=== PATIENT | female | born 1985 | race Asian ===

== ENCOUNTER 2016-12-24 09:01 | Outpatient (CLI) | payer BC ==
[~2016-12-24] VITALS: Ht 154.9 cm; Wt 78.2 kg
[2016-12-24 09:13] VITALS: BP 114/64; PULSE 83; TEMP 98.2
[2016-12-24] MEDS ORDERED: VTAMINC250TA ×2 (09:24)
[2016-12-24] MEDS ORDERED: PRENATAL1 TA7 PO (09:25)
[2016-12-24] MEDS ORDERED: IRON325 MG PO (09:25)
[2016-12-24] MEDS ORDERED: GLUCOPHAGE500 MG/TAB PO (09:26)
[2016-12-24 09:32] VITALS: BP 114/64; PULSE 83; TEMP 98.2
[2016-12-24 10:18] VITALS: BP 108/69; PULSE 76
== END 2016-12-24 10:37 | disposition home or self-care (01) ==
LOC: LDRO 09:01
DX: O47.1 False labor at or after 37 completed weeks of gestation (principal); Z3A.39 39 weeks gestation of pregnancy

== ENCOUNTER 2016-12-26 01:44 | Inpatient (IN) | payer BC ==
[~2016-12-26] VITALS: Ht 154.9 cm; Wt 78.2 kg
[2016-12-26] VITALS (17 sets, daily range): BP systolic 108–149; BP diastolic 60–85; PULSE 71–122; TEMP 97.9–99
[~2016-12-26 01:44] MED LIST: GLUCOPHAGE500 MG/TAB PO; IRON325 MG PO; PRENATAL1 TA7 PO; VTAMINC250TA
[2016-12-26 05:10] LABS: BASO % 0.2 % (0.0-2.0); EOS % 0.2 % (0-4.0); GRAN # 14.4 (1.4-6.5); GRAN % 84.9 % (42.2-75.2); HEMOGLOBIN 12.5 g/dl (12.5-16.0); LYMPH # 1.7 (1.2-3.4); LYMPH % 10.3 % (20.0-51.0); MEAN CELL VOLUME 81 fl (80.0-100.0); MEAN CORPUSCULAR HEMOGLOBIN 27 pg (27.0-31.0); MEAN CORPUSCULAR HGB CONC 33 g/dl (33.0-37.0); MEAN PLATELET VOLUME 13.4 fl (7.4-10.4); MONO # 0.7 (0.1-0.6); MONO % 3.8 % (1.7-9.3); PLATELET COUNT 263 K/mm3 (130-400); RED BLOOD COUNT 4.67 M/mm3 (4.10-5.30); REDCELL DISTRIBUTION WIDTH-CV 18.1 % (11.5-14.5)
[2016-12-27 03:45] VITALS: BP 103/70; PULSE 72; TEMP 97.5
[2016-12-27 07:36] LABS: BASO % 0.3 % (0.0-2.0); EOS # 0.3 (0.0-0.7); EOS % 2.5 % (0-4.0); GRAN # 8.1 (1.4-6.5); GRAN % 71.3 % (42.2-75.2); LYMPH # 2.3 (1.2-3.4); LYMPH % 19.8 % (20.0-51.0); MEAN CELL VOLUME 84 fl (80.0-100.0); MEAN CORPUSCULAR HGB CONC 32 g/dl (33.0-37.0); MEAN PLATELET VOLUME 12.2 fl (7.4-10.4); MONO # 0.6 (0.1-0.6); MONO % 5.5 % (1.7-9.3); PLATELET COUNT 205 K/mm3 (130-400); RED BLOOD COUNT 4.14 M/mm3 (4.10-5.30); REDCELL DISTRIBUTION WIDTH-CV 18.2 % (11.5-14.5); WHITE BLOOD COUNT 11.4 K/mm3 (4.8-10.8)
[2016-12-27 07:40] LABS: HEMATOCRIT 34.6 % (37.0-47.0); HEMOGLOBIN 11.1 g/dl (12.5-16.0); MEAN CORPUSCULAR HEMOGLOBIN 27 pg (27.0-31.0)
[2016-12-27 08:00] VITALS: BP 109/76; PULSE 96; TEMP 98.2
[2016-12-27] MEDS ORDERED: IBU600 MG PO (08:55)
[2016-12-27] MEDS ORDERED: PERCOCET 325 MG1 TA2 PO (08:56)
[2016-12-27 22:10] VITALS: BP 121/85; PULSE 95; TEMP 98.2
[2016-12-28 07:15] VITALS: BP 121/80; PULSE 79; TEMP 97.6
== END 2016-12-28 10:34 | disposition home or self-care (01) | DRG 775 ==
LOC: LDRO → OB 02:12 → LDR 02:12 → OB 06:00
PROVIDERS: Obstetrics & Gynecology
PROC: 10E0XZZ Delivery of Products of Conception, External Approach (ICD-10-PCS; principal; 2016-12-26)
PROC: 0UQMXZZ Repair Vulva, External Approach (ICD-10-PCS; 2016-12-26)
DX: O70.1 Second degree perineal laceration during delivery (principal); O70.0 First degree perineal laceration during delivery; Z3A.39 39 weeks gestation of pregnancy; Z37.0 Single live birth
CPT/HCPCS: J2590; J7120